=== PATIENT | female | born 1970 | race Caucasian/White ===

== ENCOUNTER → 2023-05-22 | Outpatient (CLI) | payer BC, SELFPAY ==
[2023-05-22 12:20] LABS: Absolute Lymphocyte Count 2.19 X10^3/uL (0.83-4.51); Basophil# 0.01 X10^3/uL; Basophil% 0.1 % (0-1); Eosinophil# 0.12 X10^3/uL; Eosinophils% 1.8 % (0-5); Hematocrit 43.2 % (37-47); Lymphocyte # 2.19 X10^3/ul (0.83-4.51); Lymphocyte % 32.6 % (19-41); Mean Corp Hgb Conc 32.4 g/dL (32-36); Mean Corpuscular Hgb 29.2 pg (27.0-32.0); Mean Corpuscular Volume 90.2 fL (81-99); Mean Platelet Vol. 10.9 fl (6.2-12.0); Monocyte# 0.41 X10^3/uL; Monocyte% 6.1 % (0-10); NRBC Flagged by Analyzer 0 % (0-5); Neutrophil # 3.97 X10^3/uL (2.7-7.7); Neutrophil % 59.1 % (47-70); Platelet Count 243 K/mm3 (150-450); RBC Distribution Width CV 12.7 % (11.6-14.6); RBC Distribution Width SD 42.1 fl (35.1-43.9); Red Blood Count 4.79 M/mm3 (4.2-5.4); White Blood Count 6.7 K/mm3 (4.4-11.0)
[2023-05-22 12:42] LABS: ALB/GLOB Ratio 1.3 RATIO (0.9-2.4); AST(SGOT) 22 U/L (15-37); Alanine Aminotransfer ALT/SGPT 43 U/L (13-56); Alkaline Phosphatase 79 U/L (45-117); Anion Gap 1 (5-15); BUN 16 mg/dL (7-18); Calcium,Total 9.2 mg/dL (8.5-10.1); Chloride 113 mmol/L (98-107); Creatinine, Serum 0.73 mg/dL (0.55-1.02); EST Glomerular Filtration Rate 89 mL/min (>60); Est Glom Filt Rate - Afr Amer 107 mL/min (>60); Globulin 3.1 g/dL (2.2-4.2); Glucose 93 mg/dL (74-106); Potassium 4.2 mmol/L (3.5-5.1); Protein, Total 7.1 g/dL (6.4-8.2); Sodium Level 142 mmol/L (136-145)
[2023-05-22 12:53] LABS: Microalbumin,Random Urine 22.3 mg/L (NO RANGE EST.); Microalbumin:Creatinine Ratio 9.8 mg/g CRE (<30 mg/g CRE)
[2023-05-22 13:04] LABS: Hemoglobin A1c 5.2 % (3.8-5.6)
[2023-05-23 12:26] LABS: Cholesterol 120 mg/dL (200); High Density Lipoprotein 44 mg/dL; Triglycerides 97 mg/dL; Very Low Density Lipoprotein 19 mg/dL (5-40)
== END | disposition home or self-care (01) ==
LOC: BIMLAB 09:07
PROVIDERS: PCP Internal Medicine; Referring Provider Internal Medicine; Visit Provider Internal Medicine
DX: E11.9 Type 2 diabetes mellitus without complications (principal); E78.5 Hyperlipidemia, unspecified
CPT/HCPCS: 36415; 80053; 80061; 82043; 82570; 83036; 85025

== ENCOUNTER → 2023-11-24 | Outpatient (CLI) | payer BC, SELFPAY ==
--- NOTE | 2023-11-24 13:29 | BI_ITS ---
MAMMOGRAPHY - BILATERAL SCREENING REASON FOR EXAM: Female, 53 years old. Routine annual screening examination. PERTINENT HISTORY: Non-contributory. Remote left excisional breast biopsy. TECHNIQUE: Digital bilateral breast mimi (3D mammographic acquisition) in the CC and MLO projections. 2-D mediolateral oblique (MLO) and craniocaudad (CC) views of both breasts were obtained. CAD: Full Field Digital Mammography with Computer Added Detection was performed. COMPARISON: Comparison is made with prior outside examination dated May 02, 2022 and March 09, 2013. FINDINGS: Breast Composition: The breasts are heterogeneously dense, which may obscure small masses. There are no dominant masses or suspicious calcifications. No other significant abnormalities are identified. There has been no significant change since the prior study. BI/SCRN MAMM (CAD)W/MIMI BILAT IMPRESSION: Stable bilateral screening mammogram. Yearly follow-up mammogram recommended. (A) ASSESSMENT CATEGORY: BIRADS Category 1: Negative. A letter regarding these results will be sent to the patient by the facility within 30 days. Approximately 10% of breast cancers are not detected by mammography. A normal mammogram should not delay biopsy of a clinically suspicious abnormality. [id number] Electronically Signed: Benedict Saldana MD at 8:15 EDT ,
== END | disposition home or self-care (01) ==
LOC: OPBI 13:29
PROVIDERS: PCP Internal Medicine; Referring Provider Internal Medicine; Visit Provider Internal Medicine
DX: Z12.31 Encounter for screening mammogram for malignant neoplasm of breast (principal)
CPT/HCPCS: 77063; 77067

== ENCOUNTER → 2023-12-23 | Outpatient (CLI) | payer BC, SELFPAY ==
[2023-12-23 17:27] LABS: Vitamin D,25 Hydroxy 74.4 ng/mL
== END | disposition home or self-care (01) ==
LOC: BIMLAB 12:02
PROVIDERS: PCP Internal Medicine; Visit Provider Internal Medicine
DX: E55.9 Vitamin D deficiency, unspecified (principal)
CPT/HCPCS: 36415; 82306

== ENCOUNTER → 2024-04-19 | Outpatient (CLI) | payer BC, SELFPAY ==
[2024-04-19 12:33] LABS: Absolute Lymphocyte Count 1.79 X10^3/uL (0.83-4.51); Absolute Neutrophil Count 3.1 X10^3/uL (2.0-7.7); Basophil# 0.04 X10^3/uL; Basophil% 0.7 % (0-1); Eosinophils% 1.8 % (0-5); Hematocrit 40.4 % (37-47); Hemoglobin 13.1 g/dL (12.0-15.0); Lymphocyte # 1.79 X10^3/ul (0.83-4.51); Lymphocyte % 32.9 % (19-41); Mean Corp Hgb Conc 32.4 g/dL (32-36); Mean Corpuscular Hgb 29.1 pg (27.0-32.0); Mean Corpuscular Volume 89.8 fL (81-99); Mean Platelet Vol. 10.9 fl (6.2-12.0); Monocyte# 0.42 X10^3/uL; Monocyte% 7.7 % (0-10); NRBC Flagged by Analyzer 0 % (0-5); Neutrophil # 3.08 X10^3/uL (2.7-7.7); Neutrophil % 56.7 % (47-70); Platelet Count 254 K/mm3 (150-450); RBC Distribution Width CV 12.6 % (11.6-14.6); White Blood Count 5.4 K/mm3 (4.4-11.0)
[2024-04-19 12:51] LABS: ALB/GLOB Ratio 1.4 RATIO (0.9-2.4); AST(SGOT) 21 U/L (15-37); Alanine Aminotransfer ALT/SGPT 39 U/L (13-56); Alkaline Phosphatase 53 U/L (45-117); Anion Gap 5 (5-15); BUN 15 mg/dL (7-18); BUN/Creat Ratio 18.4 RATIO (10-20); Calcium,Total 8.8 mg/dL (8.5-10.1); Chloride 111 mmol/L (98-107); Cholesterol 114 mg/dL (200); Creatinine, Serum 0.82 mg/dL (0.55-1.02); EST Glomerular Filtration Rate 77 mL/min (>60); Est Glom Filt Rate - Afr Amer 94 mL/min (>60); Globulin 2.9 g/dL (2.2-4.2); Glucose 98 mg/dL (74-106); High Density Lipoprotein 42 mg/dL; Potassium 4.2 mmol/L (3.5-5.1); Protein, Total 6.9 g/dL (6.4-8.2); Sodium Level 140 mmol/L (136-145); Triglycerides 97 mg/dL; Very Low Density Lipoprotein 19 mg/dL (5-40)
== END | disposition home or self-care (01) ==
LOC: BIMLAB 09:35
PROVIDERS: PCP Internal Medicine; Referring Provider Internal Medicine; Visit Provider Internal Medicine
DX: Z00.00 Encounter for general adult medical examination without abnormal findings (principal)
CPT/HCPCS: 36415; 80053; 80061; 85025

== ENCOUNTER → 2024-05-17 | Outpatient (CLI) | payer BC, SELFPAY ==
--- NOTE | 2024-05-17 18:40 | MRI_ITS ---
EXAM: MR LEFT LOWER EXTREMITY WITHOUT INTRAVENOUS CONTRAST, KNEE CLINICAL INDICATION: pain, failing cortisone , mild OA TECHNIQUE: Multiplanar and multisequence MR images of the left knee without intravenous contrast. COMPARISON: June 06, 2023 FINDINGS: BONES/JOINTS: See below. EXTENSOR MECHANISM: Unremarkable. MEDIAL MENISCUS: Unremarkable. LATERAL MENISCUS: Unremarkable. MEDIAL CAPSULE/SUPPORTING STRUCTURES: Unremarkable. Intact. LATERAL CAPSULE/SUPPORTING STRUCTURES: Unremarkable. Lateral collateral ligamentous complex, inclusive of the popliteal tendon, are intact. ANTERIOR CRUCIATE LIGAMENT: Unremarkable. Intact. POSTERIOR CRUCIATE LIGAMENT: Unremarkable. Intact. MUSCLES: Unremarkable. CARTILAGE: High-grade to full-thickness focal chondral loss at the lateral aspect of the median ridge of the patella with subchondral cystic change at and just lateral to the median ridge of the patella. Other areas of moderate chondral loss involving the medial and lateral patellar facets. FLUID: Physiologic amount of suprapatellar joint fluid. No Whelan''s cyst. No joint effusion. OTHER SOFT TISSUES: Nonspecific edema involving Hoffa''s fat. MRI/Lower Ext Joint Only (Routine) IMPRESSION: 1. High-grade to full-thickness focal chondral loss at the lateral aspect of the median ridge of the patella with subchondral cystic change. 2. Other areas of moderate chondral loss involving the medial and lateral patellar facets. 3. Nonspecific edema involving Hoffa''s fat. 4. Physiologic amount of suprapatellar joint fluid with no evidence of a Whelan''s cyst. 5. No other significant internal derangement of the knee. Electronically Signed: Abdelrahman Kapoor MD at 22:17 EDT ,
--- NOTE | 2024-05-17 18:40 | MRI_ITS ---
EXAM: MR LEFT LOWER EXTREMITY WITHOUT INTRAVENOUS CONTRAST, KNEE CLINICAL INDICATION: pain, failing cortisone , mild OA TECHNIQUE: Multiplanar and multisequence MR images of the left knee without intravenous contrast. COMPARISON: No relevant prior studies available. FINDINGS: BONES/JOINTS: Focal subchondral cystic change without chondral thickness loss at the central aspect of the lateral patellar facet. Subchondral cystic change also at the median ridge of the patella with no more than moderate overlying chondral loss. No fracture. No abnormal bone marrow signal. No synovial hypertrophy. No intra-articular body. EXTENSOR MECHANISM: Unremarkable. MEDIAL MENISCUS: Unremarkable. LATERAL MENISCUS: Unremarkable. MEDIAL CAPSULE/SUPPORTING STRUCTURES: Unremarkable. Intact. LATERAL CAPSULE/SUPPORTING STRUCTURES: Unremarkable. Lateral collateral ligamentous complex, inclusive of the popliteal tendon, are intact. ANTERIOR CRUCIATE LIGAMENT: Unremarkable. Intact. POSTERIOR CRUCIATE LIGAMENT: Unremarkable. Intact. MUSCLES: Unremarkable. CARTILAGE: See above. FLUID: Small amount of suprapatellar joint fluid. No Whelan''s cyst. No joint effusion. MRI/Lower Ext Joint Only (Routine) IMPRESSION: 1. Patellar chondral pathology with associated subchondral cystic changes. 2. Small amount of suprapatellar joint fluid with no Whelan''s cyst. 3. No other significant internal derangement. Electronically Signed: Abdelrahman Kapoor MD at 22:47 EDT ,
== END | disposition home or self-care (01) ==
PROVIDERS: PCP Internal Medicine; Referring Provider Orthopaedic Surgery Sports Medicine; Visit Provider Orthopaedic Surgery Sports Medicine
DX: M25.562 Pain in left knee (principal); M25.561 Pain in right knee
CPT/HCPCS: 73721

== ENCOUNTER → 2024-07-08 | Outpatient (CLI) | payer BC, SELFPAY ==
[2024-07-08 15:02] LABS: Absolute Lymphocyte Count 1.24 X10^3/uL (0.83-4.51); Absolute Neutrophil Count 3.4 X10^3/uL (2.0-7.7); Basophil# 0.01 X10^3/uL; Basophil% 0.2 % (0-1); Eosinophil# 0.05 X10^3/uL; Hematocrit 39.9 % (37-47); Hemoglobin 13.5 g/dL (12.0-15.0); Lymphocyte # 1.24 X10^3/ul (0.83-4.51); Lymphocyte % 24.3 % (19-41); Mean Corp Hgb Conc 33.8 g/dL (32-36); Mean Corpuscular Hgb 29.7 pg (27.0-32.0); Mean Corpuscular Volume 87.9 fL (81-99); Mean Platelet Vol. 10.7 fl (6.2-12.0); Monocyte# 0.41 X10^3/uL; NRBC Flagged by Analyzer 0 % (0-5); Neutrophil # 3.39 X10^3/uL (2.7-7.7); Neutrophil % 66.3 % (47-70); Platelet Count 234 K/mm3 (150-450); RBC Distribution Width CV 12.5 % (11.6-14.6); RBC Distribution Width SD 39.8 fl (35.1-43.9); Red Blood Count 4.54 M/mm3 (4.2-5.4); White Blood Count 5.1 K/mm3 (4.4-11.0)
[2024-07-08 16:05] LABS: ALB/GLOB Ratio 1.8 RATIO (0.9-2.4); AST(SGOT) 22 U/L (15-37); Alanine Aminotransfer ALT/SGPT 44 U/L (13-56); Albumin, Serum 4.6 g/dL (3.2-5.0); Alkaline Phosphatase 73 U/L (45-117); Anion Gap 5 (5-15); BUN 20 mg/dL (7-18); BUN/Creat Ratio 24.7 RATIO (10-20); Calcium,Total 9.6 mg/dL (8.5-10.1); Chloride 109 mmol/L (98-107); Creatinine, Serum 0.81 mg/dL (0.55-1.02); EST Glomerular Filtration Rate 78 mL/min (>60); Est Glom Filt Rate - Afr Amer 94 mL/min (>60); Ferritin 93 ng/mL (8-252); Globulin 2.5 g/dL (2.2-4.2); Glucose 93 mg/dL (74-106); Potassium 4.2 mmol/L (3.5-5.1); Protein, Total 7.1 g/dL (6.4-8.2); Sodium Level 140 mmol/L (136-145); T4 Free Direct 1.16 ng/dL (0.76-1.46)
[2024-07-10 04:08] LABS: Thyroid Peroxidase AB 14 IU/mL (0-34)
[2024-07-13 08:13] LABS: Anti-Nuclear Antibody Test Negative (.)
== END | disposition home or self-care (01) ==
LOC: BIMLAB 12:00
PROVIDERS: PCP Internal Medicine; Referring Provider Physician Assistant; Visit Provider Physician Assistant
DX: L82.1 Other seborrheic keratosis (principal); D22.5 Melanocytic nevi of trunk; L81.4 Other melanin hyperpigmentation; Z71.89 Other specified counseling; L57.8 Other skin changes due to chronic exposure to nonionizing radiation; L57.0 Actinic keratosis; L30.9 Dermatitis, unspecified; L65.9 Nonscarring hair loss, unspecified; L73.8 Other specified follicular disorders; R20.8 Other disturbances of skin sensation; L82.0 Inflamed seborrheic keratosis; Z78.9 Other specified health status
CPT/HCPCS: 36415; 80053; 82728; 84439; 84443; 85025; 86038; 86376

== ENCOUNTER 2024-08-04 15:30 | Outpatient (RCR) | payer BC, SELFPAY ==
--- NOTE | 2024-06-15 13:05 | HP.PTEVAL ---
Patient's Visit Information Visit Information Visit Information: BRYANT SOL is a 54 year old F referred to Physical Therapy by Dr. Gavino Pringle DO with a diagnosis of B knee OA. Date of Evaluation: 06/14/24 Physical Therapist: Wil Lynn DPT Visit Plan Frequency: 2x /Week Duration: 4 Weeks Plan: 1) US to R knee 3.3 MHz, continuous 2) quad stretching 3) progressive strengthening once symptoms have started to reduce, focus on quads, glutes, glute medius, hip ER. Subjective Subjective: Pt. is here today for her initial evaluation with diagnosis of B knee OA R worse than L. Pt. reports having a R meniscal surgery ~27 years ago. She has been having progressive knee pain since. She reports increased pain with stairs, standing for prolonged times, prolonged walking, squatting. Pt. reports high levels of pain 7/10 frequently, occasionally worse. Pt. denies N/T. Her pain is more superficial knee region. Pt. is hopeful to reduce symptoms in order to get back to all recreational activities without limitations. Pt. did have an injection and seems to be slightly improving. Pain R knee: Pain Intensity (Out of 10): 7 Objective Objective: POSTURE: Pt. has normal knee positioning. Pt. does not have a major valgus knee positioning. Slight B femoral IR. PALPATION: pt. has no tenderness with palpation throughout B knees, slight tenderness at superior aspect of patella. NEURO: normal sensation and normal DTR of BLEs. Pt. is able to rise on heels and toes without issues. ROM: L knee: 0-0-125deg. R knee 0-0-133deg. Pt. has slight tightness in B knees. MMT: RLE: ankle 5/5 throughout; knee: ext 27.1#, flexion 15.1#; hip: flex 15.5#, abd 13.3#. LLE: ankle 5/5 through; knee: ext 22.5#, flexion 14.9#; hip: flex 17/1#, abd 14.4#. GAIT: Pt. has fairly normal gait pattern, but does have increased femoral IR during stance phase. STAIRS: PT. has increased pain during stair negotiation, descending is worse than ascending. Special Tests R Knee Carissa - Meniscus: Negative R Knee Apley - Meniscus: Negative R Knee Anterior Drawer - ACL: Negative R Knee Valgus - MCL: Negative R Knee Varus - LCL: Negative L Knee Carissa - Meniscus: Negative L Knee Apley - Meniscus: Negative L Knee Anterior Drawer - ACL: Negative L Knee Valgus - MCL: Negative L Knee Varus - LCL: Negative Balance/Special Test Scores Lower Extremity Functional Score: 32 Goals Goal 1:: LTG: Pt. to be I with HEP. Goal Time Frame: 4-6 Weeks Goal 2:: STG: Pt. to be able to sleep without increase in B knee pain Goal Time Frame: 2-4 Weeks Goal 3:: LTG: Pt. to have increased strength in B LEs by 10# throughout, (current: RLE: ankle 5/5 throughout; knee: ext 27.1#, flexion 15.1#; hip: flex 15.5#, abd 13.3#. LLE: ankle 5/5 through; knee: ext 22.5#, flexion 14.9#; hip: flex 17/1#, abd 14.4#.) Goal Time Frame: 4-6 Weeks Goal 4:: LTG: Pt. to be able to ambulate without increase in B knee pain. Goal Time Frame: 4-6 Weeks Rehabilitation Potential Physical Therapy Diagnosis: Pt. has signs and symptoms consistent with B knee OA. Pt. has marked hypomobility, weakness, difficulty walking. Pt. would benefit from PT to work on the above limitations progressing back to all previous levels of function. Rehabilitation Potential: Good Anticipated Interventions Patient/Client Instruction: Educate patient on: Condition, Plan of Care, Risk Factors and Benefits of Fitness Program For the Purpose of:: To decrease pain, To increase ROM, To improve nutrient delivery to tissue, To increase oxygenation perfusion, To improve muscle performance and motor function, To improve ability to perform ADL's, To improve gait and locomotor functions, To improve health of tissue, To decrease soft tissue restriction, To increase flexibility/ROM, To foster healthy habits, To improve decision making, To facilitate caregiver knowledge, To improve self management, To prevent re-injury and To improve ability to perform tasks related to life management Therapeutic Exercise to Include: Strength training, Power training, Postural training, Flexibilty training, Passive ROM, Active ROM and Dynamic Lumbar Stabilization Cryotherapy (ice pack, ice massage): Yes Ultrasound (thermal/non thermal): Yes For the Purpose of:: To decrease pain, To decrease swelling/inflammation and To increase ROM Text: Thank you for the opportunity to evaluate your patient. For Medicare and Medicare HMO plans, please review the plan of care and approve it. It will need to be FAXED BACK to us at [phone] for Medicare purposes. For Medicare only, by signing this I certify the plan of care. Please let me know if there are questions or concerns regarding this plan of care. Physician Signature: Date:
== END 2024-08-04 19:00 | disposition home or self-care (01) ==
LOC: PT 15:30
PROVIDERS: PCP Internal Medicine; Visit Provider Orthopaedic Surgery
DX: M17.0 Bilateral primary osteoarthritis of knee (principal)
CPT/HCPCS: 97035; 97110; 97161

== ENCOUNTER → 2024-12-06 | Outpatient (CLI) | payer BC, SELFPAY ==
--- NOTE | 2024-12-06 11:43 | BI_ITS ---
EXAM: SCRN MAMM (CAD)W/MIMI BILAT DATE: 12/06/2024 CLINICAL HISTORY: F, Age 54 y/o , BREAST CANCER SCREENING BREAST CANCER RISK ASSESSMENT: Has not been calculated TECHNIQUE: Bilateral screening digital breast tomosynthesis with 2D and 3D images. Computer aided detection. COMPARISON: Prior exam(s) dated 02 Jan 2024 and 03/09/2000 13. FINDINGS: TISSUE DENSITY: The breast tissue is composed of scattered area of fibroglandular density. Bilateral Breast Mammographic Findings: There are no suspicious masses, suspicious clustered microcalcifications, architectural distortion or secondary signs of malignancy identified in either breast. Partially obscured stable isodense mass are seen in the superior outer aspect of both breast and appear to represent probable intramammary lymph nodes. Benign vascular calcifications and round calcifications seen in the right breast. BI/SCRN MAMM (CAD)W/MIMI BILAT IMPRESSION: Right Breast: BIRADS 2 BENIGN FINDING. Left Breast: BIRADS 2 BENIGN FINDING. OVERALL FINAL ASSESSMENT: BIRADS 2 BENIGN FINDING RECOMMENDATION: Routine annual follow-up in 1 Year A letter with findings and recommendations will be mailed to the patient. Reading Location: [id number]
== END | disposition home or self-care (01) ==
PROVIDERS: PCP Internal Medicine; Referring Provider Internal Medicine; Visit Provider Internal Medicine
DX: Z12.31 Encounter for screening mammogram for malignant neoplasm of breast (principal)
CPT/HCPCS: 77063; 77067

== ENCOUNTER 2025-01-26 06:39 | Day surgery (SDC) | payer BC, SELFPAY ==
[2025-01-26] VITALS (7 sets, daily range): BP systolic 106–121; BP diastolic 63–77; PULSE 70–80; RESP 16; TEMP 21.6–36.2; O2SAT 96–100; BMI 34.5
[2025-01-26] MEDS: Lactated Ringers 1,000 ML 15 ML IV (07:20)
--- NOTE | 2025-01-26 07:20 | HP.PCM_ITS ---
HPI - General General Date of Service: 01/26/25 HPI Narrative BRYANT SOL, is a 55 F who presents for a screening colonoscopy. Patient last colonoscopy was in 2019 in [place]. Patient is adopted. Patient has bowel movements daily denies any blood. Patient denies any chronic abdominal pain/nausea/vomiting/reflux. [facility] Medical History (Updated 01/21/25 @ 12:20 by Brittny Marroquin) Wears glasses Post-menopausal Alcohol use Arthritis Low iron Fatty liver Migraine headache Dietary restriction Heartburn Former smoker History of pain when walking Hx of dislocation of ankle Colon cancer screening Obesity Bilateral primary osteoarthritis of knee Preventative health care Insomnia Left knee pain Right knee pain Hyperlipidemia Fibromyalgia Bilateral knee pain Type 2 diabetes mellitus Polycystic ovaries High cholesterol Diabetes Hx of allergy Home Medications ?Medication ?Instructions ?Recorded ?Last Taken ?Type cholecalciferol (vitamin D3) 125 125 mcg PO DAILY 03/0201/25/25 History mcg (5,000 unit) capsule lactobacillus combination no.9 4 4,000 mmu cells PO DA JOSE ANTONIO 03/25/23 01/25/25 History billion cell capsule (Adult 50 Plus Probiotic) omega 6-jaf-jvd-fish oil 900 1 cap PO DAILY 03/25/23 0 01/25/25 History mg-1,400 mg capsule,delayed release (Fish Oil) turmeric root extract 500 mg 500 mg PO DAILY 03/25/23 01/25/25 History capsule zolpidem 5 mg tablet (Ambien) 2.5 mg (1/2 x 5 mg) PO Q HS PRN 06/30/24 Unknown Rx insomnia #20 tabs gabapentin 600 mg tablet 600 mg PO TID #240 tabs 12/0 10/2501/25/25 Rx amitriptyline 50 mg tablet 50 mg PO QHS #90 tabs 12/1701/25/25 Rx metformin 1,000 mg tablet 1,000 mg PO BID 3 months #18 0 tabs 12/17/24 01/25/25 Rx trazodone 50 mg tablet 50 mg PO QHS PRN insomnia #9 0 tabs 12/17/24 Unknown Rx atorvastatin 40 mg tablet 40 mg PO QHS 01/21/25 History ferrous sulfate 325 mg (65 mg 325 mg PO DAILY 01/26/25 Unknown History iron) tablet (Feosol) Allergy/AdvReac Type Severity Reaction Status Date / Time codeine Allergy Severe Vomiting Verified 01/26/25 07:01 latex Allergy Mild Rash Verified 01/26/25 07:01 adhesive tape Allergy Rash Verified 01/26/25 07:01 Surgical History (Updated 01/21/25 @ 12:20 by Brittny Marroquin) Hx of colonoscopy Hx of appendectomy Hx laparoscopic cholecystectomy Hx of arthroscopic knee surgery Hx of tubal ligation History of History of lumpectomy of left breast Social History Smoking Status: Former smoker alcohol intake: current details: occasional substance use type: does not use what type of physical activity do you participate in: none Past Medical/Surgical History Planned Operation Planned Operative Procedure(s): CSCOPE OA Previous Hospitalizations/Surgeries HX Hospitalizations: No Any Problems With Anesthesia: Yes (N,V. UNABLE TO AWAKEN AND HAD NARCAN X1) You/Your Family Experience Fever (Hyperthermia) With Anes: No (ADOPTED) Cholinesterase deficiency: No Cardiovascular Hx of Irregular Heartbeat and/or Afib: No Hx Heart Attack: No Hx Congestive Heart Failure: No Hx Hypertension: No Hx Pacemaker: No Respiratory Hx Chronic Obstructive Pulmonary Disease (COPD): No Hx Asthma: No Hx Emphysema: No Hx Sleep Apnea: No Hx Respiratory Tract Infection/Cold (presently): No Do You Snore Loudly (louder than talking or can be heard): No Do You Often Feel Tired/ Fatigued/ Sleepy Dring Daytime?: No Has Anyone Observed You Stop Breathing During Sleep?: No Result (for STOP score): Negative Smoking Status: Former smoker Gastrointestinal Hx Ulcer: No Neurological Hx Seizures: No Hx Head/Neck Injury: No Hx Headaches: Yes Hx Back Injury/Pain: No Does patient have nerve stimulator: No Reproduction : No Miscellaneous Recent Exposure to Contagious Disease: No Allergies codeine Allergy (Severe, Verified 01/26/25 07:01) Vomiting latex Allergy (Mild, Verified 01/26/25 07:01) Rash adhesive tape Allergy (Verified 01/26/25 07:01) Rash LATEX TAPE Discharge Is Pt Admitted From a Alf, or a Correction: No After D/C, Where Do you Plan to Go: Return Home Vital Signs Vital Signs Vital Signs: 01/26/25 07:16 01/26/25 07:16 Temperature 97.1 F L Temperature Source Temporal Pulse Rate 80 Respiratory Rate 16 Respiratory Pattern Normal Blood Pressure 121/76 H Blood Pressure Mean 91 Blood Pressure Source Monitor Blood Pressure Position Semi-Fowlers Blood Pressure Location Left Arm Pulse Ox 96 Oxygen Delivery Method Room Air Weight Weight: 220 lb 10.923 oz Body Mass Index (BMI) 34.5 Physical Exam Const alert, oriented x3 and no apparent distress HEENT normocephalic and head/scalp atraumatic Resp normal respiratory effort Cardio regular rate GI soft to palpation; Negative for non-distended Palpation: tender RLQ; Negative for guarding Extremity no clubbing, cyanosis or edema Neuro CN's II-XII intact bilaterally Psych mental status grossly normal Assessment & Plan Assessment/Plan (1) Colon cancer screening: Surgery Risks - Colonoscopy I discussed with the patient the risks of the procedure: Yes Risks Include but are not Limited To: Risks include but are not limited to: Bleeding, perforation requiring further surgery, inability to complete colonoscopy requiring barium enema.
--- NOTE | 2025-01-26 07:28 | PCM.PRE.AN2 ---
ASA Classification* ASA Classification ASA Classification: 2 Assessment & Plan Anesthesia* Anesthesia Assessment Anesthesia Assessment: Discussed sedation and/or anesthesia options, risks, benefits, and alternatives with patient/parents/legal guardian/POA. Questions invited. The patient/parents/legal guardian/POA seems to understand and agrees to proceed with anesthesia plan. Reviewed the physical assessment, medical history, allergy history and patient home medications list prior to surgery/procedure/anesthetic and documented any changes. Performed airway and anesthesia risk assessments. Anesthesia Type Anesthesia Type: MAC History Source History Obtained from:: Patient and Chart Anesthesia Focused Assessment* Temperature: 97.1 F Pulse Rate: 80 Blood Pressure: 121/76 Respiratory Rate: 16 Pulse Ox: 96 Oxygen Delivery Method: Room Air Airway Assessment Mouth opens: >3 cm Mallampati Score: III Teeth Condition: Intact Neck Range of motion (ROM): Full ROM Focused Labs Anesthesia Preop lab: CBC WBC 5.1 K/mm3 (4.4-11.0) 07/08/24 12:07/08/24 RBC 4.54 M/mm3 (4.2-5.4) 07/08/24 12:07/08/24 Hgb 13.5 g/dL (12.0-15.0) 07/08/24 12:07/08/24 Hct 39.9 % (37-47) 07/08/24 12:07/08/24 Plt Count 234 K/mm3 (150-450) 07/08/24 12:05 07/08/24 CHEMISTRY Potassium 4.2 mmol/L (3.5-5.1) 07/08/24 12:07/08/24 Sodium 140 mmol/L (136-145) 07/08/24 12:07/08/24 BUN 20 mg/dL (7-18) H 07/08/24 12:07/08/24 Creatinine 0.81 mg/dL (0.55-1.02) 07/08/24 12:07/08/24 Glucose 93 mg/dL (74-106) 07/08/24 12:07/08/24 TSH 1.570 uIU/mL (0.358-3.740) 07/08/24 12:05 07/08/24 COAG Pre-Assessment Diagnosis/Proposed Procedure Planned Operative Procedure(s): CSCOPE OA Anesthesia History 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 UNABLE TO AWAKEN 01/26/25 07:21 AND HAD NARCAN X1 Cholinesterase deficiency No 01/26/25 07:21 You/Your Family Experience No: ADOPTED 01/26/25 07:21 fever (hyperthermia) with Relationship Recent Exposure to Contagious No 01/26/25 07:21 Disease Does patient have nerve No 01/26/25 07:21 stimulator Patient instructed to have device shut off --Does patient have Pacemaker No 01/26/25 07:16 or ICD? When Was Last Pacemaker Check QUESTION #4 FULL TEXT: You/Your Family Experience fever (hyperthermia) with Anesthesia Last Oral Intake Last Oral intake: Last Oral Intake NPO since 00:00 01/26/25 07:16 Meds taken in AM with sips of No 01/26/25 07:16 water? 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 Female Yes 01/21/25 12:10 HX of Motion Sickness Yes 01/21/25 12:10 HX of N/V After Surgery Yes 01/21/25 12:10 Non-Smoker Yes 01/21/25 12:10 Duration of Surgery greater No 01/21/25 12:10 than 60 minutes Number of Risk Factors 4 01/21/25 12:10 PONV Score Severe Risk 01/21/25 12:10 Height & Weight Height & Weight: Anesthesia: Height & Weight Height 5 ft 7 in 01/26/25 07:16 Weight: 100.1 kg 01/26/25 07:16 Body Mass Index (BMI) 34.5 01/26/25 07:16 Respiratory Assessment Respiratory Assessment - ludlow machine operator: Respiratory Tract Infection Hx - ludlow machine operator Hx Respiratory Tract Infection No 01/26/25 07:21 STOP Sleep Apnea STOP Sleep Apnea - ludlow machine operator: STOP Sleep Apnea - ludlow machine operator Hx Hypertension No 01/26/25 07:21 Hx Sleep Apnea No 01/26/25 07:21 CPAP BIPAP Do you snore loudly (louder No 01/26/25 07:21 than talking or can be heard Do you often feel tired/ No 01/26/25 07:21 fatigued/ sleepy during daytime? Has anyone observed you stop No 01/26/25 07:21 breathing during sleep? STOP Results Negative 01/26/25 07:21 QUESTION #5 FULL TEXT : Do you snore loudly (louder than talking or can be heard through closed doors)? 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 Specify any problems Hx of Preganancy in last 3 No 01/21/25 12:10 Months Nurse Filling Out Transfusion DSCHRIBER 01/21/25 12:10 & Questions: Date: 01/21/25 01/21/25 12:10 Time: 12:13 01/21/25 12:10 Patient unable to answer at this time (ie. 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: /Reproductive Hx- ludlow machine operator Hx Now No 01/26/25 07:21 Gestational Age (in weeks): EDC: Hx Hx Para Hx Section SAB No 01/21/25 12:10 Active Medications Active Medications: Current Medications Generic Name Dose Route Start Last Admin Trade Name Freq PRN Reason Stop Dose Admin Lactated Ringer's 1,000 mls @ 15 mls/hr 01/26/25 07:00 01/26/25 07:20 IV 15 mls/hr .Q48H HALEY Administration PFSH Medical History Wears glasses Post-menopausal Alcohol use Arthritis Low iron Fatty liver Migraine headache Dietary restriction Heartburn Former smoker History of pain when walking Hx of dislocation of ankle Colon cancer screening Obesity Bilateral primary osteoarthritis of knee Preventative health care Insomnia Left knee pain Right knee pain Hyperlipidemia Fibromyalgia Bilateral knee pain Type 2 diabetes mellitus Polycystic ovaries High cholesterol Diabetes Hx of allergy Home Medications ?Medication ?Instructions ?Recorded ?Last Taken ?Type cholecalciferol (vitamin D3) 125 125 mcg PO DAILY 03/25/23 01/25/25 History mcg (5,000 unit) capsule lactobacillus combination no.9 4 4,000 mmu cells PO DAILY 03/25/23 01/25/25 History billion cell capsule (Adult 50 Plus Probiotic) omega 9-apx-ssf-fish oil 900 1 cap PO DAILY 03/25/23 01/25/25 History mg-1,400 mg capsule,delayed release (Fish Oil) turmeric root extract 500 mg 500 mg PO DAILY 03/25/23 01/25/25 History capsule zolpidem 5 mg tablet (Ambien) 2.5 mg (1/2 x 5 mg) PO QHS PRN 06/30/24 Unknown Rx insomnia #20 tabs gabapentin 600 mg tablet 600 mg PO TID #240 tabs 08/02/24 01/25/25 Rx amitriptyline 50 mg tablet 50 mg PO QHS #90 tabs 12/17/24 01/25/25 Rx metformin 1,000 mg tablet 1,000 mg PO BID 3 months #180 tabs 12/17/24 01/25/25 Rx trazodone 50 mg tablet 50 mg PO QHS PRN insomnia #90 tabs 12/17/24 Unknown Rx atorvastatin 40 mg tablet 40 mg PO QHS 01/21/25 01/25/25 History ferrous sulfate 325 mg (65 mg 325 mg PO DAILY 01/26/25 Unknown History iron) tablet (Feosol) Allergy/AdvReac Type Severity Reaction Status Date / Time codeine Allergy Severe Vomiting Verified 01/26/25 07:01 latex Allergy Mild Rash Verified 01/26/25 07:01 adhesive tape Allergy Rash Verified 01/26/25 07:01 Surgical History Hx of colonoscopy Hx of appendectomy Hx laparoscopic cholecystectomy Hx of arthroscopic knee surgery Hx of tubal ligation History of History of lumpectomy of left breast Social History Smoking Status: Former smoker alcohol intake: current details: occasional substance use type: does not use what type of physical activity do you participate in: none Review of Systems (Anesthesia) ROS Narrative System reviewed and no additional complaints, except as documented.
--- NOTE | 2025-01-26 08:00 | COLBX_PTH ---
PATIENT: BRYANT SOL LOC: EN U#:[id number] AGE/SX: 55/F ROOM: RE01/26/[address]: Dr. Herminia Doe MD : 1970 BED: DIS: 01/26/2025 SPEC #: [id number] RECD: 01/26/25 11:13 STATUS: ZACKARY LAUREN #: [id number] GERALDO: 01/26/25 08:[address]: Herminia Doe DEPT: SURGICAL PATHOLOGY RECD BY: Phong Cruz ENTERED: 01/26/25 11:32 SP TYPE: COLON BX OTHR DR: Dr. Lorena Francis MD Tissues: A - Cecum, NOS Procedures: Surgery Specimen Level IV HEADER OPERATION: Colonoscopy and biopsy PRE-OP DIAGNOSIS: Screening TISSUE SUBMITTED: A- Cecal biopsy MICROSCOPIC DIAGNOSIS A. Colon, cecum, biopsy: Tubular adenoma. MICROSCOPIC DESCRIPTION Slides are reviewed. GROSS DESCRIPTION A. Received in formalin in a container labeled with the patient's name, date of , and cecal biopsy are 2 voss-pink fragments of mucosal tissue, each measuring 0.2 x 0.2 x 0.2 cm. Submitted in toto in A1. B 01-26-2025 CPT:79740
[2025-01-26 08:24] LABS: Bedside Glucose 109 mg/dL (74-106)
--- NOTE | 2025-01-26 09:19 | OP.CCLET_ITS ---
01/26/2025 Lorena Francis MD [address] [place] [address] [place] [address] Re : Colonoscopy procedure for Yadira Donte Dear Dr. Francis This procedure was performed on Sunday, January 26, 2025. My impressions and recommendations are as follows: Impressions : - Hemorrhoids found on perianal exam. - Non-bleeding external and internal hemorrhoids. - One less than 5 mm polyp in the cecum, removed with a cold biopsy forceps. Resected and retrieved. - Diverticulosis in the sigmoid colon. - The examination was otherwise normal. Recommendations : - Discharge patient to home. - High fiber diet. - Continue present medications. - Await pathology results. - Repeat colonoscopy in 3 years for surveillance based on pathology results. My findings are described in the full procedure note, which is enclosed. If I can be of further assistance, please feel free to contact me at Doctor phone number(s): , Work: . Sincerely, MD Herminia Abbott MD 01/26/2025 9:18:39 AM This report has been signed electronically.
--- NOTE | 2025-01-26 09:19 | OP.COLON_ITS ---
Patient Name: Yadira Kent Procedure Date: 01/26/2025 8:41 AM Date of : 1970 Age: 55 Procedure: Colonoscopy Indications: Increased risk for screening colonoscopy as patient is adopted. Providers: Herminia Doe MD Referring MD: Lorena Francis MD Medicines: Monitored Anesthesia Care Patient Profile: This is a 55 year old female. Last Colonoscopy: 2019. Complications: No immediate complications. Procedure: Pre-Anesthesia Assessment: - Prior to the procedure, a History and Physical was performed, and patient medications and allergies were reviewed. The patient's tolerance of previous anesthesia was also reviewed. The risks and benefits of the procedure and the sedation options and risks were discussed with the patient. All questions were answered, and informed consent was obtained. Prior Anticoagulants: The patient has taken no anticoagulant or antiplatelet agents. ASA Grade Assessment: Per anesthesia. After reviewing the risks and benefits, the patient was deemed in satisfactory condition to undergo the procedure. After I obtained informed consent, the scope was passed under direct vision. Throughout the procedure, the patient's blood pressure, pulse, and oxygen saturations were monitored continuously. The Colonoscope was introduced through the anus and advanced to the cecum, identified by the appendiceal orifice, ileocecal valve and palpation. The colonoscopy was performed without difficulty. The patient tolerated the procedure well. The quality of the bowel preparation was good. Scope In: 8:50:06 AM Scope Withdrawal Time 0 hours 10 minutes 43 seconds Scope Out: 9:13:00 AM Total Procedure Duration Time 0 hours 22 minutes 54 seconds Findings: Hemorrhoids were found on perianal exam. Non-bleeding external and internal hemorrhoids were found. The hemorrhoids were small and Grade I (internal hemorrhoids that do not prolapse). A less than 5 mm polyp was found in the cecum. The polyp was sessile. The polyp was removed with a cold biopsy forceps. Resection and retrieval were complete. Scattered small-mouthed diverticula were found in the sigmoid colon. The exam was otherwise without abnormality. Impression: - Hemorrhoids found on perianal exam. - Non-bleeding external and internal hemorrhoids. - One less than 5 mm polyp in the cecum, removed with a cold biopsy forceps. Resected and retrieved. - Diverticulosis in the sigmoid colon. - The examination was otherwise normal. Recommendation: - Discharge patient to home. - High fiber diet. - Continue present medications. - Await pathology results. - Repeat colonoscopy in 3 years for surveillance based on pathology results. Procedure Code(s): --- Professional --- 63527, PT, Colonoscopy, flexible; with biopsy, single or multiple Diagnosis Code(s): --- Professional --- K64.0, First degree hemorrhoids D12.0, Benign neoplasm of cecum K57.30, Diverticulosis of large intestine without perforation or abscess without bleeding CPT copyright 2021 [employer]. All rights reserved. The codes documented in this report are preliminary and upon administrative support assistant review may be revised to meet current compliance requirements. MD Herminia Abbott MD 01/26/2025 9:18:39 AM This report has been signed electronically. Number of Addenda: 0 Note Initiated On: 01/26/2025 8:41 AM
--- NOTE | 2025-01-26 09:23 | PCM.POST.ANE ---
Anesthesia: Postop Eval I Current Vital Signs Temperature: 97.1 F Pulse Rate: 71 Blood Pressure: 106/63 Respiratory Rate: 16 Pulse Ox: 97 Oxygen Delivery Method: Room Air Assessment Airway patent: Yes Spontaneous unlabored respirations: Yes Mental status: Asleep nausea: No Vomiting: No Anesthesia Complication: No Fluid Hydration Crystalloid volume administer (ml): 500 Total IV fluid infused: 500 Progress Note Anesthesia document: Postop Eval 1 completed: Yes
--- NOTE | 2025-01-26 10:03 | PCM.POSTANE2 ---
Anesthesia Postop Eval I Sum Postop Eval Completion status Anesthesia document: Postop Eval 1 completed: Yes Anesthesia Postop Eval I Summary Anesthesia Postop Eval I Summary: Anesthesia Postop Eval I: Assessment Summary Airway patent Yes 01/26/25 09:24 [email or web address] Spontaneous unlabored Yes 01/26/25 09:24 [email or web address] respirations Mental status Asleep 01/26/25 09:24 [email or web address] nausea No 01/26/25 09:24 [email or web address] Vomiting No 01/26/25 09:24 [email or web address] Anesthesia Postop Eval I: Fluid Summary Crystalloid volume administer 500 01/26/25 09:24 [email or web address] (ml) Colloids volume administered ( ml) Blood Product volume administered (ml) Total IV fluid infused 500 01/26/25 09:24 [email or web address] Anesthesia Postop Eval I: Summary Notes Anesthesia Complication No 01/26/25 09:24 [email or web address] Anesthesia Complication Comment: Post-operative progress note Anesthesia: Postop Eval II Evaluation Mental status: Awake and Calm Pain Level: 0 nausea: No Vomiting: No Complications Anesthesia Complication: No
== END 2025-01-26 09:54 | disposition home or self-care (01) ==
LOC: EN 06:39 → AC 06:41
PROVIDERS: PCP Internal Medicine; Referring Provider Internal Medicine; Visit Provider Surgery
PROC: 0DJD8ZZ Inspection of Lower Intestinal Tract, Via Natural or Artificial Opening Endoscopic (ICD-10-PCS; CPT 45378; principal; 2025-01-26 07:55)
DX: Z12.11 Encounter for screening for malignant neoplasm of colon (principal); E11.9 Type 2 diabetes mellitus without complications; K57.30 Diverticulosis of large intestine without perforation or abscess without bleeding; Z87.891 Personal history of nicotine dependence; D12.0 Benign neoplasm of cecum; E78.00 Pure hypercholesterolemia, unspecified; K64.0 First degree hemorrhoids; Z98.51 Tubal ligation status; Z90.49 Acquired absence of other specified parts of digestive tract
CPT/HCPCS: 45380; 82962; 88305; J2405

== ENCOUNTER → 2025-03-14 | Outpatient (CLI) | payer BC, SELFPAY ==
[2025-03-14 10:50] LABS: AST(SGOT) 28 U/L (<=31); Alanine Aminotransfer ALT/SGPT 40 U/L (<=34); Albumin, Serum 4.5 g/dL (3.5-5.0); Alkaline Phosphatase 90 U/L (35-104); Anion Gap 12 (5-15); BUN 14 mg/dL (4-19); BUN/Creat Ratio 18.6 RATIO (10-20); Calcium,Total 9.5 mg/dL (7.6-11.0); Carbon Dioxide 24.4 mmol/L (21.0-32.0); Chloride 107 mmol/L (98-108); Globulin 2.3 g/dL (2.2-4.2); Glucose 119 mg/dL (70-99); Potassium 4.1 mmol/L (3.3-5.1)
== END | disposition home or self-care (01) ==
LOC: MTLAB 08:37
PROVIDERS: PCP Internal Medicine; Referring Provider Internal Medicine; Visit Provider Internal Medicine
DX: E11.69 Type 2 diabetes mellitus with other specified complication (principal)
CPT/HCPCS: 36415; 80053; 83036